=== PATIENT | female | born 1980 | race Caucasian/White ===

== ENCOUNTER → 2017-08-22 06:54 | Outpatient (CLI) | payer BC, SELFPAY ==
[2017-08-22 10:54] VITALS: BP 116/70; BMI 30.5
== END ==
PROVIDERS: Family Provider Family Medicine; PCP Family Medicine; Visit Provider Obstetrics & Gynecology
DX: R87.619 Unspecified abnormal cytological findings in specimens from cervix uteri (principal)

== ENCOUNTER → 2018-12-12 | Outpatient (CLI) | payer BC, SELFPAY ==
[2018-09-11 09:24] VITALS: BMI 30.5
== END | disposition home or self-care (01) ==
PROVIDERS: Family Provider Family Medicine; PCP Family Medicine; Visit Provider Family Medicine
DX: N10 Acute pyelonephritis (principal)
CPT/HCPCS: 87077; 87086; 87088; 87186

== ENCOUNTER → 2019-01-09 | Outpatient (CLI) | payer BC, SELFPAY ==
[2019-01-09 10:01] VITALS: BMI 30.5
[2019-01-09 12:29] LABS: HIV - WCH Non-Reactive (Nonreactive)
[2019-01-11 03:06] LABS: HCV Quant. RNA PCR HCV Not Detected IU/mL (.)
[2019-01-12 01:18] LABS: Rapid Plasmin Reagin (RPR) NONREACTIVE (NONREACTIVE)
[2019-01-12 12:31] LABS: HSV 2 IgG < 0.91 index (0.00-0.90)
[2019-01-24 13:46] LABS: HPV APTIMA, High Risk POSITIVE
[2019-01-24 14:09] LABS: HPV Genotype 16, Aptima Negative (Negative); HPV Genotype 18,45 Aptima Negative (Negative)
== END | disposition home or self-care (01) ==
PROVIDERS: Family Provider Family Medicine; PCP Family Medicine; Referring Provider Obstetrics & Gynecology; Visit Provider Obstetrics & Gynecology
DX: N89.8 Other specified noninflammatory disorders of vagina (principal); Z12.4 Encounter for screening for malignant neoplasm of cervix
CPT/HCPCS: 36415; 86592; 86695; 86696; 86703; 87070; 87205; 87522; 87624; 88175; G0145

== ENCOUNTER → 2019-03-07 | Outpatient (CLI) | payer BC, SELFPAY ==
--- NOTE | 2019-03-07 | CER_PTH ---
PATIENT: CHAPITO ROJAS LOC: [facility] U#:[id number] AGE/SX: 38/F ROOM: RE03/07/[address]: Dr. Carolina Stack MD : 1980 BED: DIS: 03/07/2019 SPEC #: [id number] RECD: 03/07/19 16:24 STATUS: PABLO MARY #: [id number] KEISHA: 03/07/19 00:[address]: Carolina Stack DEPT: SURGICAL PATHOLOGY RECD BY: Gerardo Wilson ENTERED: 03/08/19 07:41 SP TYPE: CERV OTHR DR: Dr. Erick Thornton MD Tissues: Uterine cervix, NOS Procedures: Surgery Specimen Level IV HEADER OPERATION: Colposcopy PRE-OP DIAGNOSIS: HPV positive TISSUE SUBMITTED: Colposcopy 11 o'clock MICROSCOPIC DIAGNOSIS Cervix, 11 o'clock, biopsy: A fragment of endocervical mucosa with moderate to marked chronic inflammation. Rare minute fragment of ectocervical epithelium, negative for dysplasia. ALE:keturah 03/09/19 COMMENT Clinical correlation and appropriate follow up are necessary. MICROSCOPIC DESCRIPTION Slides are reviewed. GROSS DESCRIPTION Received in fixative is one container labeled with the patient's name and designated 11 o'clock. The specimen consists of a minute fragment of morrow soft tissue measuring 0.1 cm in greatest dimension. The specimen is totally submitted in one cassette. / ALE:keturah 03/08/19 TC:3 CPT: 64222
[2019-03-07 08:48] VITALS: BMI 30.4
== END | disposition home or self-care (01) ==
LOC: LABSPEC 17:04
PROVIDERS: Family Provider Family Medicine; PCP Family Medicine; Referring Provider Obstetrics & Gynecology; Visit Provider Obstetrics & Gynecology
DX: N72 Inflammatory disease of cervix uteri (principal)
CPT/HCPCS: 88305

== ENCOUNTER 2020-04-30 06:27 | Emergency (ER) | payer BC, SELFPAY ==
[2019-03-07 08:48] VITALS: BMI 30.4
[2020-04-30 06:28] VITALS: BP 148/97; PULSE 98; RESP 16; TEMP 36.6; O2SAT 100; BMI 29.5
[2020-04-30 06:31] VITALS: O2SAT 100
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
[2020-04-30 07:52] VITALS: BP 126/67; PULSE 84; RESP 16; O2SAT 99
--- NOTE | 2020-04-30 07:52 | ED.RN ---
DISCHARGE INSTRUCTIONS GIVEN TO AND REVIEWED WITH PATIENT, PATIENT DENIES QUESTIONS OR CONCERNS AND VOICES UNDERSTANDING OF DISCHARGE INSTRUCTIONS. PT AMBULATES OUT OF ROOM WITHOUT DIFFICULTY.
== END 2020-04-30 07:53 | disposition home or self-care (01) ==
PROVIDERS: Emergency Provider Emergency Medicine; PCP Family Medicine
DX: S20.219A Contusion of unspecified front wall of thorax, initial encounter (principal); V89.2XXA Person injured in unspecified motor-vehicle accident, traffic, initial encounter; Z87.891 Personal history of nicotine dependence
CPT/HCPCS: 71101; 99283; 99285

== ENCOUNTER → 2020-08-21 10:23 | Outpatient (CLI) | payer BC, SELFPAY ==
[2020-08-21 09:41] VITALS: BMI 29.9
--- NOTE | 2020-08-21 10:24 | BI_ITS ---
MAMMOGRAPHY - BILATERAL SCREENING REASON FOR EXAM: Female, 40 years old. Routine annual screening examination. PERTINENT HISTORY: Non-contributory. TECHNIQUE: Digital bilateral breast dee (3D mammographic acquisition) in the CC and MLO projections. 2-D mediolateral oblique (MLO) and craniocaudad (CC) views of both breasts were obtained. CAD: Full Field Digital Mammography with Computer Added Detection was performed. COMPARISON: None. Baseline examination. FINDINGS: Breast Composition: The breasts are heterogeneously dense, which may obscure small masses. There are no dominant masses or suspicious calcifications. Accessory breast tissue is seen in the deep axillary region of the left breast. No other significant abnormalities are identified. BI/SCRN MAMM (CAD)W/DEE BILAT IMPRESSION: Stable bilateral screening mammogram. Yearly follow-up mammogram recommended. (A) ASSESSMENT CATEGORY: BIRADS Category 2: Benign. A letter regarding these results will be sent to the patient by the facility within 30 days. Approximately 10% of breast cancers are not detected by mammography. A normal mammogram should not delay biopsy of a clinically suspicious abnormality. [id number] Electronically Signed: Tom Frey MD at 11:25 EST , Service support ,
[2020-08-28 03:06] LABS: HPV Genotype 16, Aptima Negative (Negative)
[2020-08-28 09:36] LABS: HPV APTIMA, High Risk Positive (Negative); HPV Genotype 18,45 Aptima Negative (Negative)
== END ==
PROVIDERS: PCP Family Medicine; Referring Provider Obstetrics & Gynecology; Visit Provider Obstetrics & Gynecology
DX: Z12.31 Encounter for screening mammogram for malignant neoplasm of breast (principal); Z12.4 Encounter for screening for malignant neoplasm of cervix
CPT/HCPCS: 77063; 77067; 87624; 88175; G0145

== ENCOUNTER → 2020-09-10 08:19 | Outpatient (CLI) | payer BC, SELFPAY ==
[2020-08-21 09:41] VITALS: BMI 29.9
[2020-09-10 13:00] LABS: Anion Gap 7 (5-15); BUN 11 mg/dL (7-18); BUN/Creat Ratio 13.6 RATIO (10-20); Calcium,Total 8.7 mg/dL (8.5-10.1); Chloride 105 mmol/L (98-107); Cholesterol 225 mg/dL (200); Creatinine, Serum 0.81 mg/dL (0.55-1.02); EST Glomerular Filtration Rate 83 mL/min (>60); Est Glom Filt Rate - Afr Amer 101 mL/min (>60); Glucose 84 mg/dL (74-106); High Density Lipoprotein 67 mg/dL; Potassium 3.8 mmol/L (3.5-5.1); Sodium Level 138 mmol/L (136-145); Triglycerides 45 mg/dL; Very Low Density Lipoprotein 9 mg/dL (5-40)
== END ==
PROVIDERS: PCP Family Medicine; Visit Provider Family Medicine
DX: Q25.6 Stenosis of pulmonary artery (principal)
CPT/HCPCS: 36415; 80048; 80061

== ENCOUNTER → 2020-09-18 07:53 | Outpatient (CLI) | payer BC, SELFPAY ==
[2020-08-21 09:41] VITALS: BMI 29.9
--- NOTE | 2020-09-18 07:56 | ECHOD_ITS ---
Reason For Study: PULMONARY ARTERY STENOSIS Procedure This was a 2D Doppler, Color Flow transthoracic echocardiogram. The study was technically difficult. Exam performed in department. Left Ventricle Normal LV size. Left ventricular systolic function is normal. The estimated ejection fraction is 65 %. No regional wall motion abnormalities noted. Right Ventricle Normal RV size. Normal systolic function. Atria Normal left atrium. Normal right atrium. Mitral Valve Normal mitral valve. Tricuspid Valve Normal tricuspid valve. Aortic Valve Normal aortic valve. Trisinus/trileaflet aortic valve. Pulmonic Valve Normal pulmonic valve. Great Vessels Normal aortic root. The pulmonary artery is normal size. Normal inferior vena cava. Pericardium/Pleural No pericardial effusion. MMode/2D Measurements & Calculations LVIDd: 5.3 cm IVSd: 1.0 cm LAV(MOD-bp): 92.7 ml LVIDs: 3.7 cm LVPWd: 1.00 cm LAV(MOD-bp) Indexed: 45.1 ml/m2 RVDd: 3.0 cm FS: 30.6 % LAV(MOD-sp2): 106.5 ml LAV(MOD-sp4): 74.0 ml LA dimension(2D): 4.8 cm LA A4 area: 23.2 cm2 RA A4 area: 10.4 cm2 Time Measurements MV dec time: 0.21 sec Doppler Measurements & Calculations MV E max grupo: 103.7 cm/sec Lat Peak E' Grupo: 12.6 cm/sec Med Peak E' Grupo: 11.4 cm/sec MV A max grupo: 79.5 cm/sec E/E' lat: 8.3 E/E' med: 9.1 MV E/A: 1.3 Ao V2 max: 175.9 cm/sec LV V1 max: 145.3 cm/sec PA V2 max: 123.7 cm/sec Ao max P.4 mmHg LV V1 max P.4 mmHg PA V2 mean: 83.0 cm/sec PA V2 VTI: 24.1 cm Interpretation Summary Normal LV size. Left ventricular systolic function is normal. The estimated ejection fraction is 65 %. Structurally normal valves. Ordering Physician: Erick Thornton Referring Physician: Erick Thornton Performed By: Cherry Pike, FRANCHESKA, RVT
== END ==
PROVIDERS: PCP Family Medicine; Referring Provider Family Medicine; Visit Provider Family Medicine
DX: Q25.6 Stenosis of pulmonary artery (principal)
CPT/HCPCS: 93306

== ENCOUNTER → 2021-04-20 08:51 | Outpatient (CLI) | payer BC, SELFPAY ==
[2021-04-20 10:25] LABS: Vitamin D,25 Hydroxy 58.6 ng/mL
[2021-04-20 10:36] LABS: Anion Gap 6 (5-15); BUN 11 mg/dL (7-18); BUN/Creat Ratio 13.6 RATIO (10-20); Calcium,Total 8.8 mg/dL (8.5-10.1); Chloride 108 mmol/L (98-107); Cholesterol 205 mg/dL (200); Creatinine, Serum 0.81 mg/dL (0.55-1.02); EST Glomerular Filtration Rate 83 mL/min (>60); Est Glom Filt Rate - Afr Amer 101 mL/min (>60); Glucose 95 mg/dL (74-106); High Density Lipoprotein 71 mg/dL; Sodium Level 138 mmol/L (136-145); Thyroid Stim Hormone (TSH) 1.11 uIU/mL (0.358-3.74); Triglycerides 55 mg/dL; Very Low Density Lipoprotein 11 mg/dL (5-40)
== END ==
PROVIDERS: PCP Family Medicine; Referring Provider Family Medicine; Visit Provider Family Medicine
DX: Z00.00 Encounter for general adult medical examination without abnormal findings (principal)
CPT/HCPCS: 36415; 80048; 80061; 82306; 84443

== ENCOUNTER 2021-09-08 07:21 | Outpatient (CLI) | payer BC, SELFPAY ==
--- NOTE | 2021-09-08 07:24 | BI_ITS ---
MAMMOGRAPHY - BILATERAL SCREENING REASON FOR EXAM: Female, 41 years old. Routine annual screening examination. PERTINENT HISTORY: Non-contributory. TECHNIQUE: Digital bilateral breast dee (3D mammographic acquisition) in the CC and MLO projections. 2-D mediolateral oblique (MLO) and craniocaudad (CC) views of both breasts were obtained. CAD: Full Field Digital Mammography with Computer Added Detection was performed. COMPARISON: Comparison is made with prior study dated 08/21/2020. FINDINGS: Breast Composition: The breasts are heterogeneously dense, which may obscure small masses. There are no dominant masses or suspicious calcifications. Stable asymmetry of breast tissue were more breast tissue is seen in deep axillary region of the left breast as compared to the right side No other significant abnormalities are identified. There has been no significant change since the prior study. BI/SCRN MAMM (CAD)W/DEE BILAT IMPRESSION: Stable bilateral screening mammogram. Yearly follow-up mammogram recommended. (A) ASSESSMENT CATEGORY: BIRADS Category 2: Benign. A letter regarding these results will be sent to the patient by the facility within 30 days. Approximately 10% of breast cancers are not detected by mammography. A normal mammogram should not delay biopsy of a clinically suspicious abnormality. [id number] Electronically Signed: Tom Frey MD at 8:45 EST ,
[2021-09-15 22:07] LABS: HPV Genotype 16, Aptima Negative (Negative)
[2021-09-16 13:54] LABS: HPV APTIMA, High Risk Positive (Negative); HPV Genotype 18,45 Aptima Negative (Negative)
== END 2021-09-08 23:59 | disposition home or self-care (01) ==
PROVIDERS: PCP Family Medicine; Referring Provider Obstetrics & Gynecology; Visit Provider Obstetrics & Gynecology
DX: Z12.31 Encounter for screening mammogram for malignant neoplasm of breast (principal)
CPT/HCPCS: 77063; 77067; 87624; 88175; G0145

== ENCOUNTER 2021-10-23 13:46 | Outpatient (CLI) | payer BC, SELFPAY ==
--- NOTE | 2021-10-23 13:48 | RAD_ITS ---
STUDY: X-RAY - RIGHT SHOULDER REASON FOR EXAM: Female, 41 years old. SHOULDER PAIN TECHNIQUE: 4 view(s) of the shoulder. COMPARISON: None. FINDINGS: Normal glenohumeral joint space, but there is early degenerative inferior periarticular spurring of the glenoid of the scapula. Normal acromioclavicular joint. Normal acromion. Normal humeral head and visualized proximal humerus. The soft tissue structures are unremarkable. There is no demonstrated osseous destructive lesion or acute fracture. Subcentimeter calcified granuloma noted in the lateral right midlung. Patient has undergone prior median sternotomy and probable CABG. Small metal coils projecting over the right sternoclavicular region near the uppermost margin of the sternotomy wires may be related to prior embolization. RAD/Shoulder min 2 Views IMPRESSION: No acute osseous abnormality of the right shoulder. Electronically Signed: Sonido Farias MD at 10:32 EDT ,
== END 2021-10-23 23:59 | disposition home or self-care (01) ==
LOC: MTRAD 13:47
PROVIDERS: PCP Family Medicine; Referring Provider Family Medicine; Visit Provider Family Medicine
DX: M25.519 Pain in unspecified shoulder (principal)
CPT/HCPCS: 73030

== ENCOUNTER 2021-10-29 17:05 | Outpatient (CLI) | payer BC, SELFPAY ==
--- NOTE | 2021-10-29 | IMM_PTH ---
PATIENT: CHAPITO ROJAS LOC: [facility] U#:[id number] AGE/SX: 41/F ROOM: RE10/29/[address]: Dr. Carolina Stack MD : 1980 BED: DIS: 10/29/2021 SPEC #: [id number] RECD: 11/02/21 14:20 STATUS: PABLO REQ #: [id number] KEISHA: 10/29/21 00:[address]: Carolina Stack DEPT: IMMUNOHISTOCHEMISTRY RECD BY: Socorro Denny ENTERED: 11/02/21 14:22 SP TYPE: IMMUNO OTHR DR: Dr. Sid Warren MD Tissues: A - Uterine cervix, NOS Procedures: p16 (initial) KI-67 (add) PHYSICIAN & INSTITUTION [place] [id number] SPECIMEN INFORMATION: Tissue Source: A ? Cervix at 12 o?clock Clinical Info: HPV positive Specimen Number: [id number] CPT code: 48826, 65882 METHODOLOGY: Deparaffinized sections of prefer/formalin-fixed tissue or PAP/DQ stained slides are incubated with monoclonal/polyclonal antibodies/oligonucleotide probes. Localization is made via biotin free immunoperoxidase method. Appropriate controls are performed and reacted as expected. Results on target cell population are indicated in the following table: RESULTS: ANTIBODY / CLONE RESULT Block A P16 (E6H4) positive, focal, patchy Ki-67 (30-9) positive, low These tests were developed and their performance characteristics determined by [facility]. They may not have been cleared or approved by the U.S. Food and Drug Administration. The FDA has determined that such clearance or approval is not necessary. The above immunohistochemical/dualISH markers are ordered and reviewed by the Pathologist. INTERPRETATION: A. Uterine cervix at 12 o?clock, biopsy: Consistent with mild squamous dysplasia, PETROS I (LSIL). AM:keturah 11/04/2021
--- NOTE | 2021-10-29 15:30 | CER_PTH ---
PATIENT: CHAPITO ROJAS LOC: [facility] U#:[id number] AGE/SX: 41/F ROOM: RE10/29/[address]: Dr. Carolina Stack MD : 1980 BED: DIS: 10/29/2021 SPEC #: [id number] RECD: 10/29/21 16:57 STATUS: PABLO REBuffy #: [id number] KEISHA: 10/29/21 15:[address]: Carolina Stack DEPT: SURGICAL PATHOLOGY RECD BY: Venessa Garcia ENTERED: 10/30/21 07:22 SP TYPE: CERV OTHR DR: Dr. Sid Warren MD Tissues: A - Uterine cervix, NOS B - Endocervical Procedures: Surgery Specimen Level IV HEADER OPERATION: Colposcopy PRE-OP DIAGNOSIS: HPV positive TISSUE SUBMITTED: A ? Cervix 12 o?clock, B ? Endocervical curettings MICROSCOPIC DIAGNOSIS A. Cervix at 12 o?clock, biopsy: Focal HPV change/mild squamous dysplasia. Chronic inflammation. See comment. B. Endocervix, curettings: Strips of benign superficial endocervix. AM:keturah 11/02/2021 COMMENT A. Results from immunohistochemistry ([id number]) for surrogate HPV marker (p16) will be reported separately. Case has been reviewed in consultation with Dr. Obrien who concurs with the above diagnosis. IDC:SJ MICROSCOPIC DESCRIPTION Slides are reviewed. GROSS DESCRIPTION A - Received in fixative is one container labeled with the patient's name and designated 12 o?clock biopsy. The specimen consists of one irregular fragment of morrow soft tissue that measures 0.3 x 0.3 x 0.1 cm. Multiple fragments of morrow mucoid tissue are also present measuring 0.5 x 0.5 x 0.1 cm. The specimen is totally submitted in one cassette. B - Received in fixative is one container labeled with the patient's name and designated ECC. The specimen consists of multiple irregular fragments of morrow mucoid tissue that in aggregate measure 0.5 x 0.5 x 0.1 cm. The specimen is totally submitted in one cassette. / ALE:keturah 10/30/2021 TC:3 CPT: 05102 x2
== END 2021-10-29 23:59 | disposition home or self-care (01) ==
PROVIDERS: PCP Family Medicine; Referring Provider Obstetrics & Gynecology; Visit Provider Obstetrics & Gynecology
DX: R87.820 Cervical low risk human papillomavirus (HPV) DNA test positive (principal)
CPT/HCPCS: 88305; 88341; 88342

== ENCOUNTER 2022-01-05 16:30 | Outpatient (RCR) | payer BC, SELFPAY ==
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
--- NOTE | 2021-12-08 17:10 | HP.PTREVAL ---
Dr. Sid Warren MD, It has been my pleasure to treat CHAPITO ROJAS over the last 8 visits for R shoulder pain. Please see the progress note below for an update on the physical therapy plan of care! Subjective: My pain ranges from 0-4/10. Always worse in the morning Objective/Function: R shoulder pain ranges from 0-4/10. R shoulder ROM: flex= 105, abd= 80. R shoulder MMT: flex= 8, abd= 14, IR= 15, ER= 17#F. Pt still lacks functional strength and ROM at this time. Plan Plan: Pt to continue I at home with HEP for one month, then either return for PT or DC Balance/Gait/Functional tests - Balance/Special Test Scores Quick DASH Score: 36.3625 Goals Goal 1:: Decrease R shoulder pain x 50% to aid with sleep Goal Time Frame: 4-6 Weeks Goal Progress: Progressing Goal 2:: Increase R shoulder strength x 5-10 #F in all planes to aid with IADL's Goal Time Frame: 4-6 Weeks Goal Progress: Goal Met Goal 3:: Increase R shoulder flex and abd ROM x 30 degrees to aid with overhead activity Goal Time Frame: 4-6 Weeks Goal Progress: Goal Met Goal 4:: I with HEP Goal Time Frame: 4-6 Weeks Goal Progress: Goal Met Anticipated Interventions Patient/Client Instruction: Educate patient on: Condition, Plan of Care For the Purpose of:: To improve self management Therapeutic Exercise to Include: Strength training, Endurance training, Flexibilty training, Active ROM, Scapular Strength/Stabilization For the Purpose of:: To decrease pain, To increase ROM, To improve ability to perform ADL's Cryotherapy (ice pack, ice massage): Yes For the Purpose of:: To decrease pain Please do not hesitate to contact me at [phone] by phone or if you have questions or concerns regarding this new plan of care! Sincerely, Bernardo Castro, PT, ATC
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
== END 2022-01-05 19:00 | disposition home or self-care (01) ==
LOC: PT 16:30
PROVIDERS: PCP Family Medicine; Referring Provider Family Medicine; Visit Provider Family Medicine
DX: M25.511 Pain in right shoulder (principal)
CPT/HCPCS: 97110; 97161; 97164

== ENCOUNTER → 2022-01-30 | Outpatient (CLI) | payer BC, SELFPAY ==
--- NOTE | 2022-01-30 08:54 | MRI_ITS ---
STUDY: MRI RIGHT SHOULDER REASON FOR EXAM: Right shoulder pain, decreased range of motion, decreased fur puller strength, right shoulder injury 1 year ago. TECHNIQUE: Standardized fat and water weighted pulse sequences were obtained in all 3 orthogonal planes. COMPARISON: Radiographs 10/17/2021. FINDINGS: There is supraspinatus tendinosis and a small high-grade partial thickness tear of the articular surface of the distal anterior supraspinatus tendon at the greater tuberosity insertion (T2 coronal image 13) measuring 0.2 cm in length. There is infraspinatus tendinosis and a small intrasubstance partial thickness tear of the distal infraspinatus tendon (T2 coronal image 7) measuring 0.7 cm in length. There is mild subscapularis tendinosis (proton-density axial image 12) without discrete tendon tear. Normal teres minor tendon. Normal supraspinatus muscle. Normal infraspinatus muscle. Normal subscapularis muscle. Normal teres minor muscle. Normal glenohumeral articulation. Normal humeral head and visualized proximal humerus. There is a possible SLAP lesion (proton-density coronal images 10-12). Normal intracapsular long biceps tendon. Normal capsulo- ligamentous complex. Normal acromioclavicular articulation. There is a Type I morphology (flat undersurface), with a neutral orientation. There is no subacromial-subdeltoid bursal fluid. Normal visualized coracohumeral and coracoacromial ligaments. Normal deltoid muscle. Normal trapezius muscle. MRI/Upper Ext Joint Only(Routine) IMPRESSION: Small articular sided partial-thickness tear and tendinosis of the supraspinatus tendon. Small intrasubstance partial-thickness tear and tendinosis of the infraspinatus tendon. Mild subscapularis tendinosis. Possible SLAP lesion. Electronically Signed: Branden Diego MD at 10:06 EDT ,
== END | disposition home or self-care (01) ==
PROVIDERS: PCP Family Medicine; Referring Provider Family Medicine; Visit Provider Family Medicine
DX: M25.511 Pain in right shoulder (principal)
CPT/HCPCS: 73221

== ENCOUNTER → 2022-08-17 | Outpatient (CLI) | payer BC, SELFPAY ==
--- NOTE | 2022-08-17 08:03 | RAD_ITS ---
PROCEDURE: Fluoroscopic guided right shoulder Injection DATE: 08/17/2022. INDICATION: Female, 42 years old. Right shoulder capsulitis. PHYSICIAN: Tom Frey M.D. MEDICATIONS: 12 mg of BETAMETHASONE and 4 cc of 1% LIDOCAINE. 2% Lidocaine administered subcutaneously for local anesthesia. ACCESS SITE: Right shoulder. NEEDLE: 22-gauge spinal needle. FLUOROSCOPY TIME (if supplied): (0:46) minutes/seconds. A single image was submitted. FINDINGS: The risks, benefits, and alternatives to the procedure were explained to the patient. The specific risks of bleeding, infection, and neurovascular injury were detailed and accepted. Witnessed informed consent was obtained. A 22-gauge spinal needle was positioned under radiographic fluoroscopic localization. Approximately 2 cc of ISOVUE-300 instilled for localization purposes. Medication was then injected. The patient tolerated the procedure well without any immediate complications. RAD/Inj/Asp Jonathan Jt Should/Hip/Knee IMPRESSION: 1. Successful fluoroscopic guided right shoulder injection. Electronically Signed: Tom Frey MD at 9:04 EST ,
[2022-08-17] MEDS: Lidocaine 2% (5ml sdv) 5 ML VIAL.MPF INFILT (08:30)
[2022-08-17] MEDS: Betamethasone/Betamethasone 30 MG/5 ML Vial 12 MG OPERA.SITE (09:00)
== END | disposition home or self-care (01) ==
LOC: RAD 07:56
PROVIDERS: PCP Family Medicine; Referring Provider Specialist; Visit Provider Specialist
DX: M75.01 Adhesive capsulitis of right shoulder (principal)
CPT/HCPCS: 20610; 77002; Q9967; J0702

== ENCOUNTER 2022-08-23 14:14 | Emergency (ER) | payer BC, SELFPAY ==
[2022-08-23 14:15] VITALS: BP 155/76; PULSE 102; RESP 16; TEMP 36.8; O2SAT 100; BMI 30.7
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
--- NOTE | 2022-08-23 15:28 | CT_ITS ---
EXAM: CT ANGIOGRAPHY CHEST WITHOUT AND WITH INTRAVENOUS CONTRAST CLINICAL INDICATION: elevated d-dimer TECHNIQUE: Helically acquired angiography images were obtained of the chest without and with intravenous contrast. This CT exam was performed using one or more of the following dose reduction techniques: automated exposure control, adjustment of the mA and/or kV according to patient size, and/or use of iterative reconstruction technique. This report was created using Hobby report generation technology. MIP reconstructed images were created and reviewed. CONTRAST: IV 100mL Isovue-370 COMPARISON: None. FINDINGS: PULMONARY ARTERIES: Vascular graft from the left pulmonary artery to the superior vena cava. Decreased pulmonary opacification on the right appears to be due to calcified lymphadenopathy. No evidence of pulmonary embolism. AORTA: Unremarkable. Normal in caliber. No evidence of dissection. GREAT VESSELS OF AORTIC ARCH: Unremarkable. Normal in caliber. No evidence of dissection. LUNGS AND PLEURAL SPACES: Densely calcified pulmonary nodules, greater on the right, consistent with old granulomatous disease. Mild scarring in the right upper lobe. No pleural effusion or thickening. No pneumothorax. HEART: Unremarkable. Heart size is normal. No pericardial effusion. No signs of right heart strain, ratio of right ventricle to left ventricle measures less than 1. MEDIASTINUM: Esophagus is unremarkable. No hiatal hernia. THYROID: Unremarkable. No thyroid lesions. BONES/JOINTS: Unremarkable. No suspicious lytic or blastic abnormality. LYMPH NODES: Peripherally calcified pretracheal, precarinal and subcarinal lymphadenopathy measures up to 2.3 cm in short axis. Calcified hilar lymph nodes bilaterally. CT/CTA Chest W/WO Contrast IMPRESSION: 1. No evidence of PE. No acute findings. 2. Suboptimal pulmonary opacification in the right lung appears due to adenopathy. 3. Old granulomatous disease. Electronically Signed: Martha Pardo MD at 17:58 EST Reading Location ID and State: [id number] / Tel , Service support ,
--- NOTE | 2022-08-23 15:29 | EKG12_ITS ---
Test Reason : Blood Pressure : / mmHG Vent. Rate : 086 BPM Atrial Rate : 086 BPM P-R Int : 142 ms QRS Dur : 094 ms QT Int : 366 ms P-R-T Axes : 018 062 043 degrees QTc Int : 437 ms Normal sinus rhythm Normal ECG Confirmed by SHENG DALY, NIRMAL ([id number]), deputy editor in chief KEYON ROCKWELL ([id number]) on 08/24/2022 8:56:46 AM Referred By: Confirmed By:NIRMAL PATRICIO MD
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
[2022-08-23 17:00] VITALS: BP 125/76; PULSE 78; RESP 16; O2SAT 99
== END 2022-08-23 18:17 | disposition home or self-care (01) ==
PROVIDERS: Emergency Provider Student in an Organized Health Care Education/Training Program; PCP Family Medicine; Visit Provider Student in an Organized Health Care Education/Training Program
DX: R07.89 Other chest pain (principal); R79.89 Other specified abnormal findings of blood chemistry; Z87.891 Personal history of nicotine dependence
CPT/HCPCS: 71275; 93005; 99282; Q9967; A4216

== ENCOUNTER → 2022-08-23 | Outpatient (CLI) | payer BC, SELFPAY ==
[2022-08-23 12:16] LABS: Absolute Lymphocyte Count 2.97 X10^3/uL (0.83-4.51); Absolute Neutrophil Count 4.4 X10^3/uL (2.0-7.7); Basophil# 0.06 X10^3/uL; Basophil% 0.7 % (0-1); Eosinophil# 0.18 X10^3/uL; Eosinophils% 2.1 % (0-5); Hematocrit 39.9 % (37-47); Hemoglobin 13.1 g/dL (12.0-15.0); Lymphocyte # 2.97 X10^3/ul (0.83-4.51); Lymphocyte % 34.8 % (19-41); Mean Corp Hgb Conc 32.8 g/dL (32-36); Mean Corpuscular Hgb 31.3 pg (27.0-32.0); Mean Corpuscular Volume 95.5 fL (81-99); Mean Platelet Vol. 8.5 fl (6.2-12.0); Monocyte% 10.6 % (0-10); NRBC Flagged by Analyzer 0 % (0-5); Neutrophil # 4.36 X10^3/uL (2.7-7.7); Neutrophil % 51.1 % (47-70); Platelet Count 378 K/mm3 (150-450); RBC Distribution Width SD 41.8 fl (35.1-43.9); Red Blood Count 4.18 M/mm3 (4.2-5.4); White Blood Count 8.5 K/mm3 (4.4-11.0)
[2022-08-23 12:30] LABS: D-Dimer Quantitative (DVT/PE) 0.66 FEU/ug/m (0.27-0.49)
[2022-08-23 12:40] LABS: Anion Gap 8 (5-15); BUN 9 mg/dL (7-18); BUN/Creat Ratio 12.3 RATIO (10-20); Calcium,Total 8.6 mg/dL (8.5-10.1); Chloride 104 mmol/L (98-107); Creatinine, Serum 0.73 mg/dL (0.55-1.02); EST Glomerular Filtration Rate 92 mL/min (>60); Est Glom Filt Rate - Afr Amer 112 mL/min (>60); Glucose 89 mg/dL (74-106); Sodium Level 137 mmol/L (136-145); Troponin-I HS 5 pg/mL (3.0-54.0)
== END | disposition home or self-care (01) ==
LOC: MFPLAB 10:45
PROVIDERS: PCP Family Medicine; Referring Provider Family Medicine; Visit Provider Family Medicine
DX: R07.9 Chest pain, unspecified (principal)
CPT/HCPCS: 36415; 80048; 84484; 85025; 85379

== ENCOUNTER → 2022-09-10 | Outpatient (CLI) | payer BC, SELFPAY ==
--- NOTE | 2022-09-10 07:19 | BI_ITS ---
MAMMOGRAPHY - BILATERAL SCREENING REASON FOR EXAM: Female, 42 years old. Routine annual screening examination. PERTINENT HISTORY: Non-contributory. TECHNIQUE: Digital bilateral breast dee (3D mammographic acquisition) in the CC and MLO projections. 2-D mediolateral oblique (MLO) and craniocaudad (CC) views of both breasts were obtained. CAD: Full Field Digital Mammography with Computer Added Detection was performed. COMPARISON: Comparison is made with prior study dated 09/08/2021 and 08/21/2020. FINDINGS: Breast Composition: The breasts are heterogeneously dense, which may obscure small masses. There are no dominant masses or suspicious calcifications. Stable asymmetry of breast tissue were more breast tissue is seen in the deep axillary region of the left breast as compared to the right side No other significant abnormalities are identified. There has been no significant change since the prior study. BI/SCRN MAMM (CAD)W/DEE BILAT IMPRESSION: Stable bilateral screening mammogram. Yearly follow-up mammogram recommended. (A) ASSESSMENT CATEGORY: BIRADS Category 2: Benign. A letter regarding these results will be sent to the patient by the facility within 30 days. Approximately 10% of breast cancers are not detected by mammography. A normal mammogram should not delay biopsy of a clinically suspicious abnormality. [id number] Electronically Signed: Tom Frey MD at 9:48 EST ,
== END | disposition home or self-care (01) ==
LOC: OPBI 07:17
PROVIDERS: PCP Family Medicine; Referring Provider Obstetrics & Gynecology; Visit Provider Obstetrics & Gynecology
DX: Z12.31 Encounter for screening mammogram for malignant neoplasm of breast (principal)
CPT/HCPCS: 77063; 77067

== ENCOUNTER → 2022-09-13 | Outpatient (CLI) | payer BC, SELFPAY ==
[2022-09-21 15:12] LABS: HPV APTIMA, High Risk Negative (Negative)
== END | disposition home or self-care (01) ==
PROVIDERS: PCP Family Medicine; Visit Provider Obstetrics & Gynecology
DX: Z12.4 Encounter for screening for malignant neoplasm of cervix (principal)
CPT/HCPCS: 87624; 88175; G0145

== ENCOUNTER 2022-12-31 23:48 | Emergency (ER) | payer BC, SELFPAY ==
[2022-12-31 23:49] VITALS: BP 162/91; PULSE 107; RESP 18; TEMP 36.6; O2SAT 100; BMI 30.7
--- NOTE | 2022-12-31 23:59 | EKG12_ITS ---
Test Reason : PALPS Blood Pressure : / mmHG Vent. Rate : 099 BPM Atrial Rate : 099 BPM P-R Int : 142 ms QRS Dur : 088 ms QT Int : 352 ms P-R-T Axes : 058 067 056 degrees QTc Int : 451 ms Normal sinus rhythm Normal ECG Confirmed by RENZO DALY, MEILNDA ([id number]), newspaper photo editor KEYON ROCKWELL ([id number]) on 01/03/2023 10:57:41 A M Referred By: BLAIRE Confirmed By:HARESH MULLER MD
--- NOTE | 2023-01-01 00:01 | RAD_ITS ---
INDICATION: chest pain EXAMINATION/TECHNIQUE: X-RAY - portable upright AP chest x-ray COMPARISON: 04/30/2020 FINDINGS: LINES/DEVICES: None. LUNGS: No consolidation, edema or effusion. No pneumothorax. MEDIASTINUM AND CARDIOVASCULAR STRUCTURES: Cardiac silhouette not enlarged. Stable changes of CABG. BONES AND SOFT TISSUES: No acute changes. RAD/Chest 1 View (Portable) IMPRESSION: No radiographic evidence of acute cardiopulmonary disease. Electronically Signed: Stefano Champion MD at 0:42 EDT ,
[2023-01-01 00:30] LABS: Absolute Lymphocyte Count 3.92 X10^3/uL (0.83-4.51); Absolute Neutrophil Count 3.9 X10^3/uL (2.0-7.7); Basophil# 0.08 X10^3/uL; Basophil% 0.9 % (0-1); Eosinophils% 3.3 % (0-5); Hematocrit 37.3 % (37-47); Hemoglobin 12.6 g/dL (12.0-15.0); Lymphocyte # 3.92 X10^3/ul (0.83-4.51); Lymphocyte % 43.3 % (19-41); Mean Corp Hgb Conc 33.8 g/dL (32-36); Mean Corpuscular Hgb 31.1 pg (27.0-32.0); Mean Corpuscular Volume 92.1 fL (81-99); Mean Platelet Vol. 8.5 fl (6.2-12.0); Monocyte# 0.84 X10^3/uL; Monocyte% 9.3 % (0-10); NRBC Flagged by Analyzer 0 % (0-5); Neutrophil # 3.89 X10^3/uL (2.7-7.7); Neutrophil % 42.9 % (47-70); Platelet Count 338 K/mm3 (150-450); RBC Distribution Width CV 11.9 % (11.6-14.6); RBC Distribution Width SD 40.3 fl (35.1-43.9); Red Blood Count 4.05 M/mm3 (4.2-5.4); White Blood Count 9.1 K/mm3 (4.4-11.0)
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
[2023-01-01 00:47] LABS: D-Dimer Quantitative (DVT/PE) 0.48 FEU/ug/m (0.27-0.49)
[2023-01-01 00:54] LABS: Anion Gap 9 (5-15); BUN 14 mg/dL (7-18); BUN/Creat Ratio 16.7 RATIO (10-20); Calcium,Total 8.5 mg/dL (8.5-10.1); Chloride 108 mmol/L (98-107); Creatinine, Serum 0.84 mg/dL (0.55-1.02); EST Glomerular Filtration Rate 79 mL/min (>60); Est Glom Filt Rate - Afr Amer 96 mL/min (>60); Estimated Creatinine Clearance 91.18 ml/min; Glucose 88 mg/dL (74-106); Potassium 3.5 mmol/L (3.5-5.1); Sodium Level 141 mmol/L (136-145); Troponin-I HS (w/2H Reflex) 6 pg/mL (3.0-54.0)
[2023-01-01 01:01] VITALS: BP 105/63; PULSE 81; RESP 18; O2SAT 98
[2023-01-01 01:34] VITALS: BP 106/62; PULSE 78; RESP 17; O2SAT 100
[2023-01-01 02:29] LABS: Reflex Troponin-HS? (from REC) Y
== END 2023-01-01 01:36 | disposition home or self-care (01) ==
PROVIDERS: Emergency Provider Student in an Organized Health Care Education/Training Program; PCP Family Medicine; Visit Provider Student in an Organized Health Care Education/Training Program
DX: R00.2 Palpitations (principal); R42 Dizziness and giddiness; Z87.891 Personal history of nicotine dependence
CPT/HCPCS: 71045; 80048; 84484; 85025; 85379; 93005; 99284; A4216

== ENCOUNTER 2023-06-02 13:22 | Emergency (ER) | payer BC, SELFPAY ==
[2023-06-02 13:23] VITALS: BP 156/85; PULSE 122; RESP 18; TEMP 36.6; O2SAT 94; BMI 31.0
--- NOTE | 2023-06-02 13:26 | EKG12_ITS ---
Test Reason : CHEST PAIN Blood Pressure : / mmHG Vent. Rate : 116 BPM Atrial Rate : 116 BPM P-R Int : 148 ms QRS Dur : 088 ms QT Int : 316 ms P-R-T Axes : 073 083 065 degrees QTc Int : 439 ms Sinus tachycardia Otherwise normal ECG Confirmed by SHENG DALY, NIRMAL ([id number]), newspaper copy editor KEYON ROCKWELL ([id number]) on 06/08/2023 11:59:50 AM Referred By: Confirmed By:NIRMAL PATRICIO MD
[2023-06-02 13:40] VITALS: BP 153/81; PULSE 92
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
[2023-06-02] MEDS: 0.9% Normal Saline (1000mL) 1,000 ML 1000 ML IV (14:22)
[2023-06-02 14:29] LABS: Absolute Lymphocyte Count 2.82 X10^3/uL (0.83-4.51); Absolute Neutrophil Count 4.8 X10^3/uL (2.0-7.7); Basophil# 0.06 X10^3/uL; Basophil% 0.7 % (0-1); Eosinophil# 0.13 X10^3/uL; Eosinophils% 1.5 % (0-5); Hematocrit 39.6 % (37-47); Lymphocyte # 2.82 X10^3/ul (0.83-4.51); Lymphocyte % 33.2 % (19-41); Mean Corp Hgb Conc 32.8 g/dL (32-36); Mean Corpuscular Hgb 30.7 pg (27.0-32.0); Mean Corpuscular Volume 93.4 fL (81-99); Mean Platelet Vol. 8.3 fl (6.2-12.0); Monocyte# 0.67 X10^3/uL; Monocyte% 7.9 % (0-10); NRBC Flagged by Analyzer 0 % (0-5); Neutrophil # 4.78 X10^3/uL (2.7-7.7); Neutrophil % 56.3 % (47-70); Platelet Count 380 K/mm3 (150-450); RBC Distribution Width SD 40.9 fl (35.1-43.9); Red Blood Count 4.24 M/mm3 (4.2-5.4); White Blood Count 8.5 K/mm3 (4.4-11.0)
[2023-06-02 14:48] LABS: Internal QC Validated? YES +Cl - CLEAR BKGD; Pregnancy, Serum, hCG Quali. NEGATIVE Negative
[2023-06-02 14:51] LABS: Anion Gap 7 (5-15); BUN 7 mg/dL (7-18); BUN/Creat Ratio 7.7 RATIO (10-20); Calcium,Total 9.1 mg/dL (8.5-10.1); Chloride 105 mmol/L (98-107); Creatinine, Serum 0.91 mg/dL (0.55-1.02); EST Glomerular Filtration Rate 72 mL/min (>60); Est Glom Filt Rate - Afr Amer 87 mL/min (>60); Estimated Creatinine Clearance 83.31 ml/min; Glucose 106 mg/dL (74-106); Potassium 3.8 mmol/L (3.5-5.1); Sodium Level 138 mmol/L (136-145); Thyroid Stim Hormone (TSH) 2.32 uIU/mL (0.358-3.74); Troponin-I HS 6 pg/mL (3.0-54.0)
[2023-06-02 14:54] LABS: D-Dimer Quantitative (DVT/PE) 0.51 FEU/ug/m (0.27-0.49)
--- NOTE | 2023-06-02 15:32 | CT_ITS ---
STUDY: CTA CHEST REASON FOR EXAM: Female, 43 years old. dyspnea, elevated dimer RADIATION DOSAGE (If Supplied By Facility): CTDIvol = ( 11.39 ) mGy, DLP = ( 516.34 ) mGycm TECHNIQUE: The examination was performed with the intravenous administration of IV 100mL Isovue-370. Post-processing of the angiographic images was performed, with multiplanar reformation and 3D reconstruction. Individualized dose optimization techniques were used for this CT. COMPARISON: June 02, 2023. FINDINGS: Normal enhancement of the main pulmonary artery and right and left pulmonary arteries. Normal enhancement of the bilateral peripheral pulmonary arteries. There is no demonstrated pulmonary embolism. Normal thoracic aorta and visualized great vessels. There is no demonstrated aortic dissection. In general the heart size is normal although there does appear to be mild prominence of the right atrium. Calcified bilateral hilar and mediastinal nodes.. Vascular graft noted in the superior mediastinum Normal visualized trachea and bronchi. The lungs are well expanded. Calcified granulomata in right upper, lower and left lower lobes. Minor interstitial thickening in the left lower lobe and mild subsegmental atelectasis in the right lobe. Pleural-parenchymal scarring in the right apex. No pleural effusion or pneumothorax Postop change status post median sternotomy and CABG. Normal visualized upper abdomen. CT/CTA Chest W/WO Contrast IMPRESSION: Old granulomatous disease. Mild subsegmental atelectasis in the right lower lobe. No evidence for pulmonary embolus Electronically Signed: Eber Qiu MD at 17:01 EST ,
[2023-06-02 17:12] VITALS: BP 120/78; PULSE 88; RESP 18; O2SAT 99
== END 2023-06-02 17:13 | disposition home or self-care (01) ==
PROVIDERS: Emergency Provider Emergency Medicine; PCP Family Medicine; Visit Provider Emergency Medicine
DX: R00.2 Palpitations (principal); R00.0 Tachycardia, unspecified; Z87.891 Personal history of nicotine dependence
CPT/HCPCS: 71275; 80048; 84443; 84484; 84703; 85025; 85379; 93005; 96360; 99284; J7040; Q9967; A4216

== ENCOUNTER 2023-06-17 23:41 | Emergency (ER) | payer BC, SELFPAY ==
[2023-06-17 23:41] VITALS: BP 144/90; PULSE 96; RESP 17; TEMP 36.6; O2SAT 99; BMI 31.1
--- NOTE | 2023-06-18 00:20 | EKG12_ITS ---
Test Reason : PALPITATIONS Blood Pressure : / mmHG Vent. Rate : 077 BPM Atrial Rate : 077 BPM P-R Int : 138 ms QRS Dur : 098 ms QT Int : 382 ms P-R-T Axes : 041 060 046 degrees QTc Int : 432 ms Normal sinus rhythm Normal ECG Confirmed by HSENG DALY, NIRMAL ([id number]), content editor CHARISSA VALDEZ ([id number]) on 06/20/2023 10:43:53 AM Referred By: SONYA Confirmed By:NIRMAL PATRICIO MD
[2023-06-18 00:37] LABS: Absolute Lymphocyte Count 2.01 X10^3/uL (0.83-4.51); Basophil# 0.09 X10^3/uL; Basophil% 1.1 % (0-1); Eosinophil# 0.35 X10^3/uL; Eosinophils% 4.2 % (0-5); Hematocrit 34.5 % (37-47); Hemoglobin 11.6 g/dL (12.0-15.0); Lymphocyte # 2.01 X10^3/ul (0.83-4.51); Lymphocyte % 24.4 % (19-41); Mean Corp Hgb Conc 33.6 g/dL (32-36); Mean Corpuscular Hgb 31.4 pg (27.0-32.0); Mean Corpuscular Volume 93.2 fL (81-99); Mean Platelet Vol. 8.5 fl (6.2-12.0); Monocyte# 0.78 X10^3/uL; Monocyte% 9.5 % (0-10); NRBC Flagged by Analyzer 0 % (0-5); Neutrophil % 60.6 % (47-70); Platelet Count 299 K/mm3 (150-450); RBC Distribution Width CV 12.2 % (11.6-14.6); RBC Distribution Width SD 41.9 fl (35.1-43.9); White Blood Count 8.3 K/mm3 (4.4-11.0)
[2023-06-18 00:43] VITALS: RESP 16
[2023-06-18 00:54] LABS: Anion Gap 5 (5-15); BUN 13 mg/dL (7-18); Calcium,Total 8.4 mg/dL (8.5-10.1); Chloride 108 mmol/L (98-107); Creatinine, Serum 0.77 mg/dL (0.55-1.02); EST Glomerular Filtration Rate 87 mL/min (>60); Est Glom Filt Rate - Afr Amer 106 mL/min (>60); Estimated Creatinine Clearance 98.45 ml/min; Glucose 127 mg/dL (74-106); Potassium 3.8 mmol/L (3.5-5.1); Sodium Level 138 mmol/L (136-145); Troponin-I HS (w/2H Reflex) 6 pg/mL (3.0-54.0)
[2023-06-18 01:43] VITALS: RESP 16
[2023-06-18 02:00] VITALS: RESP 16
[2023-06-18 02:34] LABS: Reflex Troponin-HS? (from REC) Y
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
[2023-06-18 03:00] VITALS: BP 112/77
== END 2023-06-18 03:03 | disposition home or self-care (01) ==
PROVIDERS: Emergency Provider Emergency Medicine; PCP Family Medicine; Visit Provider Emergency Medicine
DX: R00.2 Palpitations (principal); Z87.891 Personal history of nicotine dependence
CPT/HCPCS: 80048; 84484; 85025; 93005; 99284; A4216

== ENCOUNTER 2023-06-29 05:33 | Emergency (ER) | payer BC, SELFPAY ==
[2023-06-29 05:34] VITALS: BP 146/92; PULSE 95; RESP 18; TEMP 36.6; O2SAT 100; BMI 30.4
--- NOTE | 2023-06-29 05:42 | EKG12_ITS ---
Test Reason : PALPITATIONS Blood Pressure : / mmHG Vent. Rate : 081 BPM Atrial Rate : 081 BPM P-R Int : 152 ms QRS Dur : 098 ms QT Int : 384 ms P-R-T Axes : 022 055 048 degrees QTc Int : 446 ms Normal sinus rhythm Normal ECG Confirmed by RENZO DALY, MELINDA ([id number]), editor map KEYON ROCKWELL ([id number]) on 07/04/2023 1:42:32 P M Referred By: SONYA Confirmed By:HARESH MULLER MD
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
[2023-06-29 06:43] VITALS: BP 111/60; PULSE 67; RESP 20; O2SAT 96
== END 2023-06-29 06:44 | disposition home or self-care (01) ==
PROVIDERS: Emergency Provider Emergency Medicine; PCP Family Medicine; Visit Provider Emergency Medicine
DX: R00.2 Palpitations (principal); Z79.82 Long term (current) use of aspirin; Z79.899 Other long term (current) drug therapy; Z87.891 Personal history of nicotine dependence
CPT/HCPCS: 93005; 99283

== ENCOUNTER 2023-07-27 01:06 | Emergency (ER) | payer BC, SELFPAY ==
[2023-07-27] VITALS (15 sets, daily range): BP systolic 97–147; BP diastolic 56–83; PULSE 72–84; RESP 15–24; TEMP 36.8; O2SAT 94–99; BMI 30.3
--- NOTE | 2023-07-27 01:21 | EKG12_ITS ---
Test Reason : DYSRHYTHMIA Blood Pressure : / mmHG Vent. Rate : 079 BPM Atrial Rate : 079 BPM P-R Int : 136 ms QRS Dur : 094 ms QT Int : 402 ms P-R-T Axes : 054 060 050 degrees QTc Int : 460 ms Normal sinus rhythm Nonspecific ST abnormality Abnormal ECG Confirmed by SHENG DALY, NIRMAL ([id number]), image editor CHARISSA VALDEZ ([id number]) on 07/27/2023 9:16:30 AM Referred By: Confirmed By:NIRMAL PATRICIO MD
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
[2023-07-27] MEDS: Mag Hydrox/Al Hydrox/Simeth 30 ML UDC PO (01:31)
[2023-07-27] MEDS: Ondansetron 4 MG/2 ML Vial IV (01:32)
--- NOTE | 2023-07-27 01:40 | RAD_ITS ---
STUDY: X-RAY CHEST REASON FOR EXAM: Female, 43 years old. Cough sob cp TECHNIQUE: Single AP portable view of the chest. COMPARISON: January 01, 2023 chest x-ray FINDINGS: There is volume loss in the right chest. There is a pattern of interstitial thickening within the right lung. There is no demonstrated pleural abnormality. There are sternotomy wires midline and several embolization coils. There are calcified mediastinal lymph nodes. Normal visualized pulmonary arteries. Normal visualized aortic arch and descending thoracic aorta. Normal visualized thoracic spine. Normal visualized ribs, clavicles, and shoulders. There is no demonstrated abnormality of the visualized soft tissue structures of the upper abdomen. RAD/Chest PA and Lateral IMPRESSION: Chronic, Volume loss right chest. Postoperative change status post sternotomy. Relatively stable appearing underlying chronic changes without visualized acute focal infiltrate. Electronically Signed: Kierra Jarvis MD at 2:24 EST Reading Location ID and State: [facility] / [place] Tel , Service support ,
[2023-07-27 01:44] LABS: Absolute Neutrophil Count 5.9 X10^3/uL (2.0-7.7); Basophil# 0.06 X10^3/uL; Basophil% 0.7 % (0-1); Eosinophil# 0.16 X10^3/uL; Eosinophils% 1.7 % (0-5); Hematocrit 36.4 % (37-47); Hemoglobin 12.4 g/dL (12.0-15.0); Lymphocyte % 26.1 % (19-41); Mean Corp Hgb Conc 34.1 g/dL (32-36); Mean Corpuscular Hgb 31.4 pg (27.0-32.0); Mean Corpuscular Volume 92.2 fL (81-99); Mean Platelet Vol. 8.3 fl (6.2-12.0); Monocyte% 7.6 % (0-10); NRBC Flagged by Analyzer 0 % (0-5); Neutrophil # 5.85 X10^3/uL (2.7-7.7); Neutrophil % 63.7 % (47-70); Platelet Count 348 K/mm3 (150-450); RBC Distribution Width CV 12.1 % (11.6-14.6); RBC Distribution Width SD 40.5 fl (35.1-43.9); Red Blood Count 3.95 M/mm3 (4.2-5.4); White Blood Count 9.2 K/mm3 (4.4-11.0)
[2023-07-27 02:12] LABS: Anion Gap 7 (5-15); BUN 6 mg/dL (7-18); BUN/Creat Ratio 7.8 RATIO (10-20); Calcium,Total 9.3 mg/dL (8.5-10.1); Chloride 109 mmol/L (98-107); Creatinine, Serum 0.77 mg/dL (0.55-1.02); EST Glomerular Filtration Rate 87 mL/min (>60); Est Glom Filt Rate - Afr Amer 105 mL/min (>60); Estimated Creatinine Clearance 110.91 ml/min; Glucose 110 mg/dL (74-106); Lipase 27 U/L (13-75); Potassium 3.3 mmol/L (3.5-5.1); Sodium Level 139 mmol/L (136-145); Troponin-I HS 6 pg/mL (3.0-54.0)
--- OUTSIDE RECORDS SUMMARY | 2023-07-27 02:24 | XMS RPT_ITS | CCD ---
Author Name Unknown Address [address] [place] [address] Organization [facility] Care Team Providers Care Lead Business Systems Analyst Name Role Phone MARIA ESTHER BENITO Unavailable Unavailable MARIA ESTHER BENITO Unavailable Unavailable Allergies Allergy Classification Reported Allergen(s) Allergy Type Date of Onset Reaction(s) Facility (1 source) Seasonal allergy; Translations: [SEASONAL ALLERGIES] Propensity to adverse reactions (disorder) 2 AOF [facility] Repository Problems Problem Classification Problem Date Documented Da te Episodic/Chronic Unclassified (1 source) Unknown / UNK(Unknown) Onset: 12-22-2016 Encounters Encounter Date Encounter Type Care Provider Facility Start: 12-22-2016 End: 12-24-2016 Ambulatory MARIA ESTHER BENITO [facility] Summary Purpose Family History No Family History Records Found Advance Directives No Advanced Directives Records Found Additional Source Comments INFORMATION SOURCE (unrecogn ized section and content) FOR RECORDS PERTAINING TO PATIENTS WHO ARE OR HAVE BEEN ENROLLED IN A CHEMICAL DEPENDENCY/SUBSTANCEABUSE PROGRAM, SOME INFORMATION MAY BE OMITTED. This clinical summary was aggregated from multiple sources. Caution should be exercised in using it in the provision of clinical care. This summary normalizes information from multiple sources, and as a consequence, information in this document may materially change the coding, format and clinical context of patient data. In addition, data may be omitted in some cases. CLINICAL DECISIONS SHOULD BE BASED ON THE PRIMARY CLINICAL RECORDS. [employer] provides no warranty or guarantee of the accuracy or completeness of information in this document.
== END 2023-07-27 02:54 | disposition home or self-care (01) ==
PROVIDERS: Emergency Provider Emergency Medicine; PCP Family Medicine; Visit Provider Emergency Medicine
DX: R07.9 Chest pain, unspecified (principal); K21.9 Gastro-esophageal reflux disease without esophagitis; J06.9 Acute upper respiratory infection, unspecified; Z87.891 Personal history of nicotine dependence
CPT/HCPCS: 71046; 80048; 83690; 84484; 85025; 93005; 96374; 99284; A4216; J2405

== ENCOUNTER → 2023-07-30 | Outpatient (CLI) | payer BC, SELFPAY ==
--- OUTSIDE RECORDS SUMMARY | 2023-07-29 17:26 | XMS RPT_ITS | CCD ---
Author Name Unknown Address [address] [place] [address] Organization [facility] Care Team Providers Care Grainer Machine Name Role Phone MARIA ESTHER BENITO Unavailable Unavailable MARIA ESTHER BENITO Unavailable Unavailable Allergies Allergy Classification Reported Allergen(s) Allergy Type Date of Onset Reaction(s) Facility (1 source) Seasonal allergy; Translations: [SEASONAL ALLERGIES] Propensity to adverse reactions (disorder) 2 AOF [facility] Repository Problems Problem Classification Problem Date Documented Da te Episodic/Chronic Unclassified (1 source) Unknown / UNK(Unknown) Onset: 12-22-2016 Encounters Encounter Date Encounter Type Care Provider Facility Start: 12-22-2016 End: 12-24-2016 Ambulatory MARIA ESTHER BENITO [facility] Summary Purpose Family History No Family [...] BE BASED ON THE PRIMARY CLINICAL RECORDS. [employer] provides no warranty or guarantee of the accuracy or completeness of information in this document.
--- OUTSIDE RECORDS SUMMARY | 2023-07-30 13:17 | XMS RPT_ITS | CCD ---
Author Name Unknown Address [address] [place] [address] Organization [facility] Care Team Providers Care Certified Orthotic Fitter Name Role Phone MARIA ESTHER BENITO Unavailable Unavailable MARIA ESTHER BENITO Unavailable Unavailable Allergies Allergy Classification Reported Allergen(s) Allergy Type Date of Onset Reaction(s) Facility (1 source) Seasonal allergy; Translations: [SEASONAL ALLERGIES] Propensity to adverse reactions (disorder) 2 AOF [facility] Repository Problems Problem Classification Problem Date Documented Da te Episodic/Chronic Unclassified (1 source) Unknown / UNK(Unknown) Onset: 12-22-2016 Encounters Encounter Date Encounter Type Care Provider Facility Start: 12-22-2016 End: 12-24-2016 Ambulatory MARIA ESTHER BENITO [facility] Summary Purpose Family History No Family [...] BE BASED ON THE PRIMARY CLINICAL RECORDS. [employer] provides no warranty or guarantee of the accuracy or completeness of information in this document.
== END | disposition home or self-care (01) ==
LOC: LABSPEC 13:14
PROVIDERS: PCP Family Medicine; Visit Provider Family Medicine
DX: R19.7 Diarrhea, unspecified (principal)
CPT/HCPCS: 87493; 87506

== ENCOUNTER → 2023-08-03 | Outpatient (CLI) | payer BC, SELFPAY ==
--- NOTE | 2023-08-03 06:51 | CT_ITS ---
EXAM: CT ABDOMEN AND PELVIS WITH INTRAVENOUS CONTRAST CLINICAL INDICATION: ABD PAIN TECHNIQUE: Helically acquired images were obtained of the abdomen and pelvis with intravenous contrast. This CT exam was performed using one or more of the following dose reduction techniques: automated exposure control, adjustment of the mA and/or kV according to patient size, and/or use of iterative reconstruction technique. CONTRAST: 100mL Isovue 370 and amp; Readi-CAT RADIATION DOSE: CTDIvol = 17.03 mGy, DLP = 947.32 mGy-cm COMPARISON: No prior abdomen and pelvis CT, prior CTA report from June 02, 2023 mentioned old granulomatous disease. FINDINGS: LOWER THORAX: Multiple scattered calcified granulomas in the lung bases. The heart is not fully included. Suspected scarring in the anterior right lung base. No convincing basilar infiltrates. No significant pericardial effusion. ABDOMEN: LIVER: At least 4 tiny scattered calcified granulomas in the liver. There is a typical appearance of focal fat in the left lobe of the liver adjacent to the falciform ligament. Additional evaluation is not required. GALLBLADDER AND BILE DUCTS: Unremarkable. No calcified gallstones. No gallbladder distention or wall edema. No intra- or extrahepatic biliary ductal dilation. PANCREAS: Unremarkable. No focal cystic or solid mass. SPLEEN: Multiple tiny calcified granulomas in the spleen, normal size. ADRENALS: Unremarkable. No nodules. KIDNEYS AND URETERS: Unremarkable. Normal renal size and position. No hydronephrosis. STOMACH AND BOWEL: There is minimal gas in the stomach, mild gas and contrast in the duodenum. Oral contrast reached the rectum, no obstruction. There is incomplete distention some of the distal colon, especially at the junction of the distal descending and proximal sigmoid colon. This is a limited exam for screening for neoplasm but no mass is identified. Low lying cecum. No focal inflammatory change. PELVIS: APPENDIX: Nonvisualized appendix. No pericecal inflammatory changes. BLADDER: The urinary bladder is almost collapsed and mildly thick-walled, wall thickening likely due to nondistention. REPRODUCTIVE: . There is mildly thick-walled apparent dominant follicle in the left ovary with mild peripheral enhancement, 1.9 cm x 1.5 cm x 2.4 cm. The uterus is mildly retroflexed with mildly prominent cervix. Uterus at least 9.5 cm x 6.4 cm x 7.6 cm, mildly prominent. Endometrial stripe not well seen. Also mildly prominent presumed follicle in the right ovary, elongated, 1.5 cm x 1.2 cm x 1 cm. ABDOMEN and PELVIS: INTRAPERITONEAL SPACE: Slight fluid deep in the right and posterior pelvis. No free air. BONES/JOINTS: Mild disc space narrowing and vacuum disc at L5-S1 with minimal spondylosis. No lumbar spinal stenosis. There are postoperative changes, presumed scar in the suprapubic region trace fat deep in the umbilicus. No suspicious lytic or blastic abnormality. SOFT TISSUES: See above. VASCULATURE: Unremarkable. Abdominal aorta is non-dilated. LYMPH NODES: Unremarkable. No enlarged lymph nodes. CT/Abdomen/Pelvis WITH Contrast IMPRESSION: 1. At least 1 presumed mildly prominent follicle in each ovary. Mildly prominent uterus and cervix. Correlate with recent pelvic exam and Pap smear. 2. Slight intrapelvic fluid. 3. No bowel obstruction. Nonvisualized appendix. 4. Limited distention of some of the distal colon, especially at the short segment of apparent collapse or focal narrowing at distal descending-sigmoid junction. This is a limited exam for colon screening. Recommendation: Consider endoscopy for further evaluation and screening. Electronically Signed: Gayle Clements MD at 9:05 EST ,
--- OUTSIDE RECORDS SUMMARY | 2023-08-03 06:56 | XMS RPT_ITS | CCD ---
Author Name Unknown Address [email or web address] [place] [address] Organization [facility] Care Team Providers Care Media Specialist Name Role Phone MARIA ESTHER BENITO Unavailable Unavailable MARIA ESTHER BENITO Unavailable Unavailable Allergies Allergy Classification Reported Allergen(s) Allergy Type Date of Onset Reaction(s) Facility (1 source) Seasonal allergy; Translations: [SEASONAL ALLERGIES] Propensity to adverse reactions (disorder) 2 AOF [facility] Repository Problems Problem Classification Problem Date Documented Da te Episodic/Chronic Unclassified (1 source) Unknown / UNK(Unknown) Onset: 12-22-2016 Encounters Encounter Date Encounter Type Care Provider Facility Start: 12-22-2016 End: 12-24-2016 Ambulatory MARIA ESTHER BENITO [facility] Summary Purpose Family History No Family [...] BE BASED ON THE PRIMARY CLINICAL RECORDS. [employer] provides no warranty or guarantee of the accuracy or completeness of information in this document.
== END | disposition home or self-care (01) ==
LOC: CT 06:48
PROVIDERS: PCP Family Medicine; Referring Provider Family Medicine; Visit Provider Family Medicine
DX: R10.9 Unspecified abdominal pain (principal)
CPT/HCPCS: 74177; Q9967

== ENCOUNTER 2023-08-10 01:13 | Emergency (ER) | payer BC, SELFPAY ==
[2023-08-10 01:14] VITALS: BP 143/96; PULSE 92; RESP 20; TEMP 36.1; O2SAT 100; BMI 29.0
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
--- NOTE | 2023-08-10 01:30 | RAD_ITS ---
INDICATION: Palpitations EXAMINATION/TECHNIQUE: X-RAY - XR Chest 2 Views COMPARISON: 07/27/2023. FINDINGS: LINES/DEVICES: None. LUNGS: No consolidation or evidence of an effusion. No evidence of edema or a pneumothorax. Stable calcified granulomas bilaterally. MEDIASTINUM AND CARDIOVASCULAR STRUCTURES: Cardiac silhouette is normal in size and contour. Stable postsurgical changes. Calcified mediastinal and hilar lymph nodes. BONES AND SOFT TISSUES: No acute abnormality. RAD/Chest PA and Lateral IMPRESSION: No evidence of acute cardiopulmonary disease. Electronically Signed: Eber Knapp DO at 2:10 EST ,
[2023-08-10 01:40] LABS: Absolute Lymphocyte Count 3.22 X10^3/uL (0.83-4.51); Absolute Neutrophil Count 3.9 X10^3/uL (2.0-7.7); Basophil# 0.05 X10^3/uL; Basophil% 0.6 % (0-1); Eosinophil# 0.16 X10^3/uL; Hematocrit 37.6 % (37-47); Hemoglobin 12.5 g/dL (12.0-15.0); Lymphocyte # 3.22 X10^3/ul (0.83-4.51); Lymphocyte % 39.9 % (19-41); Mean Corp Hgb Conc 33.2 g/dL (32-36); Mean Corpuscular Hgb 30.6 pg (27.0-32.0); Mean Corpuscular Volume 92.2 fL (81-99); Mean Platelet Vol. 8.4 fl (6.2-12.0); Monocyte# 0.72 X10^3/uL; Monocyte% 8.9 % (0-10); NRBC Flagged by Analyzer 0 % (0-5); Neutrophil % 48.4 % (47-70); Platelet Count 287 K/mm3 (150-450); RBC Distribution Width CV 12.1 % (11.6-14.6); RBC Distribution Width SD 41.2 fl (35.1-43.9); Red Blood Count 4.08 M/mm3 (4.2-5.4); White Blood Count 8.1 K/mm3 (4.4-11.0)
--- OUTSIDE RECORDS SUMMARY | 2023-08-10 01:57 | XMS RPT_ITS | CCD ---
Author Name Unknown Address [address] [place] [address] Organization [facility] Care Team Providers Care Board Filler Name Role Phone MARIA ESTHER BENITO Unavailable Unavailable MARIA ESTHER BENITO Unavailable Unavailable Allergies Allergy Classification Reported Allergen(s) Allergy Type Date of Onset Reaction(s) Facility (1 source) Seasonal allergy; Translations: [SEASONAL ALLERGIES] Propensity to adverse reactions (disorder) 2 AOF [facility] Repository Problems Problem Classification Problem Date Documented Da te Episodic/Chronic Unclassified (1 source) Unknown / UNK(Unknown) Onset: 12-22-2016 Encounters Encounter Date Encounter Type Care Provider Facility Start: 12-22-2016 End: 12-24-2016 Ambulatory MARIA ESTHER BENITO [facility] Summary Purpose Family History No Family [...] BE BASED ON THE PRIMARY CLINICAL RECORDS. [employer] provides no warranty or guarantee of the accuracy or completeness of information in this document.
[2023-08-10 02:00] LABS: Anion Gap 5 (5-15); BUN 6 mg/dL (7-18); BUN/Creat Ratio 7.2 RATIO (10-20); Calcium,Total 9.1 mg/dL (8.5-10.1); Chloride 108 mmol/L (98-107); Creatinine, Serum 0.84 mg/dL (0.55-1.02); EST Glomerular Filtration Rate 79 mL/min (>60); Est Glom Filt Rate - Afr Amer 95 mL/min (>60); Glucose 117 mg/dL (74-106); Potassium 3.5 mmol/L (3.5-5.1); Sodium Level 136 mmol/L (136-145); Troponin-I HS (w/2H Reflex) 7 pg/mL (3.0-54.0)
[2023-08-10 03:38] LABS: Reflex Troponin-HS? (from REC) Y
[2023-08-10 04:11] LABS: Troponin-I HS 9 pg/mL (3.0-54.0)
[2023-08-10 04:24] VITALS: BP 107/64; PULSE 68; PULSE 71; RESP 22; O2SAT 99
== END 2023-08-10 04:30 | disposition home or self-care (01) ==
PROVIDERS: Emergency Provider Emergency Medicine; PCP Family Medicine; Visit Provider Emergency Medicine
DX: R00.2 Palpitations (principal); R03.0 Elevated blood-pressure reading, without diagnosis of hypertension; Z87.891 Personal history of nicotine dependence
CPT/HCPCS: 71046; 80048; 84484; 85025; 93005; 99284; A4216

== ENCOUNTER → 2023-08-15 | Outpatient (CLI) | payer BC, SELFPAY ==
--- OUTSIDE RECORDS SUMMARY | 2023-08-15 14:05 | XMS RPT_ITS | CCD ---
Author Name Unknown Address [address] [place] [address] Organization [facility] Care Team Providers Care Livestock Ranch Hand Name Role Phone MARIA ESTHER BENITO Unavailable Unavailable MARIA ESTHER BENITO Unavailable Unavailable Allergies Allergy Classification Reported Allergen(s) Allergy Type Date of Onset Reaction(s) Facility (1 source) Seasonal allergy; Translations: [SEASONAL ALLERGIES] Propensity to adverse reactions (disorder) 2 AOF [facility] Repository Problems Problem Classification Problem Date Documented Da te Episodic/Chronic Unclassified (1 source) Unknown / UNK(Unknown) Onset: 12-22-2016 Encounters Encounter Date Encounter Type Care Provider Facility Start: 12-22-2016 End: 12-24-2016 Ambulatory MARIA ESTHER BENITO [facility] Summary Purpose Family History No Family [...] BE BASED ON THE PRIMARY CLINICAL RECORDS. [employer] provides no warranty or guarantee of the accuracy or completeness of information in this document.
[2023-08-18 17:07] LABS: HPV APTIMA, High Risk Negative (Negative)
== END | disposition home or self-care (01) ==
LOC: LABSPEC 13:28
PROVIDERS: PCP Family Medicine; Referring Provider Obstetrics & Gynecology; Visit Provider Obstetrics & Gynecology
DX: Z12.4 Encounter for screening for malignant neoplasm of cervix (principal)
CPT/HCPCS: 87624; 88175; G0145

== ENCOUNTER → 2023-08-23 | Outpatient (CLI) | payer BC, SELFPAY ==
--- NOTE | 2023-08-23 10:58 | ECHOD_ITS ---
Reason For Study: PALPITATIONS Procedure This was a 2D Doppler, Color Flow transthoracic echocardiogram. The study was technically difficult. Exam performed in department. Left Ventricle Normal size and thickness. The left ventricular ejection fraction is 60 %. Right Ventricle Normal right ventricle. Atria The left and right atria are normal. Mitral Valve Trivial mitral valve insufficiency. Tricuspid Valve Trivial tricuspid valve insufficiency. Normal pulmonary artery pressure. Aortic Valve The aortic valve is not well visualized in the short axis view. There is no aortic stenosis. No aortic valve insufficiency. Pulmonic Valve The pulmonic valve is not well visualized. Great Vessels Normal sized aortic root. Pericardium/Pleural No pericardial effusion. MMode/2D Measurements & Calculations LVIDd: 5.5 cm IVSd: 1.0 cm Ao root diam: 3.0 cm LVIDs: 3.6 cm LVPWd: 1.0 cm RVDd: 3.4 cm FS: 34.0 % LAV(MOD-bp): 47.6 ml LVAd ap4: 39.0 cm2 SV(MOD-sp4): 95.1 ml LAV(MOD-bp) Indexed: 23.8 ml/m2 LVLd ap4: 8.7 cm LAV(MOD-sp2): 51.1 ml EDV(MOD-sp4): 144.3 ml LAV(MOD-sp4): 38.5 ml EDV(sp4-el): 147.5 ml LVAs ap4: 20.4 cm2 LVLs ap4: 6.9 cm ESV(MOD-sp4): 49.2 ml ESV(sp4-el): 50.7 ml EF(MOD-sp4): 65.9 % EF(sp4-el): 65.6 % SV(sp4-el): 96.8 ml LA A4 area: 15.6 cm2 LA dimension(2D): 3.6 cm RA A4 area: 11.5 cm2 TAPSE: 1.7 cm Time Measurements MV dec time: 0.25 sec Doppler Measurements & Calculations MV E max grupo: 133.6 cm/sec Lat Peak E' Grupo: 13.0 cm/sec Med Peak E' Grupo: 11.3 cm/sec MV A max grupo: 65.4 cm/sec E/E' lat: 10.3 E/E' med: 11.8 MV E/A: 2.0 Ao V2 max: 180.4 cm/sec LV V1 max: 149.0 cm/sec PA V2 max: 78.3 cm/sec Ao max P.0 mmHg LV V1 max P.9 mmHg TR max grupo: 222.5 cm/sec TR max P.8 mmHg ECHO/Echo Complete Interpretation Summary The left ventricular ejection fraction is 60 %. Nonspecific color Doppler turbulence noted in the aortic arch. Recommend CT sca n for further evaluation. Ordering Physician: Josué Tovar Referring Physician: FREDDY RENEE Performed By: Jyoti Pacheco RDCS
--- OUTSIDE RECORDS SUMMARY | 2023-08-23 13:28 | XMS RPT_ITS | CCD ---
Author Name Unknown Address [address] [place] [address] Organization [facility] Care Team Providers Care Test Technician Name Role Phone MARIA ESTHER BENITO Unavailable Unavailable MARIA ESTHER BENITO Unavailable Unavailable Allergies Allergy Classification Reported Allergen(s) Allergy Type Date of Onset Reaction(s) Facility (1 source) Seasonal allergy; Translations: [SEASONAL ALLERGIES] Propensity to adverse reactions (disorder) 2 AOF [facility] Repository Problems Problem Classification Problem Date Documented Da te Episodic/Chronic Unclassified (1 source) Unknown / UNK(Unknown) Onset: 12-22-2016 Encounters Encounter Date Encounter Type Care Provider Facility Start: 12-22-2016 End: 12-24-2016 Ambulatory MARIA ESTHER BENITO [facility] Summary Purpose Family History No Family [...] BE BASED ON THE PRIMARY CLINICAL RECORDS. [employer] provides no warranty or guarantee of the accuracy or completeness of information in this document.
== END | disposition home or self-care (01) ==
LOC: CVS 10:57
PROVIDERS: PCP Family Medicine; Referring Provider Internal Medicine Cardiovascular Disease; Visit Provider Internal Medicine Cardiovascular Disease
DX: R00.2 Palpitations (principal); I49.9 Cardiac arrhythmia, unspecified; R03.0 Elevated blood-pressure reading, without diagnosis of hypertension
CPT/HCPCS: 93306

== ENCOUNTER → 2023-09-02 | Outpatient (CLI) | payer BC, SELFPAY ==
--- NOTE | 2023-09-02 07:25 | CT_ITS ---
STUDY: CTA CHEST REASON FOR EXAM: Female, 43 years old. Turbulence noted in Aortic Arch RADIATION DOSAGE (If Supplied By Facility): CTDIvol = ( 15.26 ) mGy, DLP = ( 439.22 ) mGycm TECHNIQUE: The examination was performed with the intravenous administration of IV 100mL Isovue-370. Post-processing of the angiographic images was performed, with multiplanar reformation and 3D reconstruction. Individualized dose optimization techniques were used for this CT. 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 Multiple smaller collaterals are noted in the right hemithorax.There is no demonstrated pulmonary embolism. Normal thoracic aorta and visualized great vessels. There is no demonstrated aortic dissection. Normal heart and pericardium. Normal mediastinum. Normal hilar regions. Normal visualized trachea and bronchi. The lungs are well expanded. Normal pulmonary parenchyma. Normal pleura. Normal chest wall structures. Normal osseous structures. Normal visualized upper abdomen. 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 Multiple smaller collaterals are noted in the right hemithorax. No demonstrated pulmonary embolism or arterial dissection. Electronically Signed: Mali Steel MD at 8:11 EST ,
--- OUTSIDE RECORDS SUMMARY | 2023-09-02 07:42 | XMS RPT_ITS | CCD ---
Author Name Unknown Address [address] [place] [address] Organization [facility] Care Team Providers Care Shot Core Drill Operator Helper Name Role Phone MARIA ESTHER BENITO Unavailable Unavailable MARIA ESTHER BENITO Unavailable Unavailable Allergies Allergy Classification Reported Allergen(s) Allergy Type Date of Onset Reaction(s) Facility (1 source) Seasonal allergy; Translations: [SEASONAL ALLERGIES] Propensity to adverse reactions (disorder) 2 AOF [facility] Repository Problems Problem Classification Problem Date Documented Da te Episodic/Chronic Unclassified (1 source) Unknown / UNK(Unknown) Onset: 12-22-2016 Encounters Encounter Date Encounter Type Care Provider Facility Start: 12-22-2016 End: 12-24-2016 Ambulatory MARIA ESTHER BENITO [facility] Summary Purpose Family History No Family History [...] BE BASED ON THE PRIMARY CLINICAL RECORDS. [employer] provides no warranty or guarantee of the accuracy or completeness of information in this document.
== END | disposition home or self-care (01) ==
LOC: CT 07:24
PROVIDERS: PCP Family Medicine; Referring Provider Nurse Practitioner Gerontology; Visit Provider Nurse Practitioner Gerontology
DX: Z86.79 Personal history of other diseases of the circulatory system (principal); I47.29 Other ventricular tachycardia; I47.10 Supraventricular tachycardia, unspecified; R03.0 Elevated blood-pressure reading, without diagnosis of hypertension; R00.2 Palpitations; R93.1 Abnormal findings on diagnostic imaging of heart and coronary circulation
CPT/HCPCS: 71275; Q9967

== ENCOUNTER → 2023-09-12 | Outpatient (CLI) | payer BC, SELFPAY ==
[2023-09-12 18:08] LABS: CRP < 2.90 mg/L (0.0-3.0)
[2023-09-14 16:10] LABS: Endomysial Antibody IgA Negative (Negative); Immunoglobulin A 195 mg/dL (87-352); t-Transglutaminase IgA <2 U/mL (0-3)
== END | disposition home or self-care (01) ==
PROVIDERS: PCP Family Medicine; Referring Provider Internal Medicine Gastroenterology; Visit Provider Internal Medicine Gastroenterology
DX: R19.7 Diarrhea, unspecified (principal)
CPT/HCPCS: 36415; 82784; 83516; 86140; 86255

== ENCOUNTER → 2023-09-16 | Outpatient (CLI) | payer BC, SELFPAY ==
--- NOTE | 2023-09-16 13:49 | STE_ITS ---
Reason For Study: CHEST PAIN, TACHYCARDIA Stress Results Protocol: Dandre Protocol Maximum Predicted HR: 177 bpm Target HR: 150 bpm % Maximum Predicted HR: 92 % DurationHeart Rate Stage (mm:ss) (bpm) BP Comment BASELINE 63 110/62 STAGE 1 3:00 103 112/62NO CHEST PAIN STAGE 2 3:00 122 120/78 STAGE 3 3:00 148 130/88SOB NOTED STAGE 4 1:00 162 / RECOVERY 93 108/78 Stress Duration: 10:00 mm:ss Maximum Stress HR: 162 bpm Baseline Echocardiogram Findings Stress Echo Wall motion Data Resting WM Intermediate WM Stress WM Resting Wall Motion Wall Motion Stress No regional wall motion All segments Hyperkinetic. abnormalities noted. EKG Data The baseline ECG displays normal sinus rhythm. Stress EKG without any ischemic changes. ECHO/Stress Test Echo w/o Contrast Interpretation Summary Patient exercised on the treadmill according to the Dandre protocol for total of 10 minutes. No ischemic ECG changes with exercise. Rare PVC noted. Normal augmentation of all left ventricular wall segments with exercise. No ech o evidence of ischemia. Ordering Physician: Josué Tovar Referring Physician: Josué Tovar Performed By: Ralph Matta [facility]
== END | disposition home or self-care (01) ==
PROVIDERS: PCP Family Medicine; Referring Provider Internal Medicine Cardiovascular Disease; Visit Provider Internal Medicine Cardiovascular Disease
DX: R03.0 Elevated blood-pressure reading, without diagnosis of hypertension (principal); R00.2 Palpitations; I49.9 Cardiac arrhythmia, unspecified
CPT/HCPCS: 93017; 93350

== ENCOUNTER → 2023-09-20 | Outpatient (CLI) | payer BC, SELFPAY ==
--- NOTE | 2023-09-20 07:26 | BI_ITS ---
MAMMOGRAPHY - BILATERAL SCREENING 3-D TOMOSYNTHESIS REASON FOR EXAM: Female, 43 years old. screening mammogram PERTINENT HISTORY: No significant family history. TECHNIQUE: 2-D mammograms and 3-D Tomosynthesis of the breast (s) were performed. CAD was performed. COMPARISON: 09/10/2022 FINDINGS: The breast composition is composed of scattered fibroglandular density. Scattered benign calcifications are seen. No dense spiculated masses or suspicious microcalcifications are identified. No architectural distortion is identified. There is no skin thickening or retraction. There has been no significant change since the prior study. BI/SCRN MAMM (CAD)W/DEE BILAT IMPRESSION: No mammographic signs of malignancy. Routine yearly mammograms recommended. ASSESSMENT CATEGORY: BIRADS Category 1: Negative. A letter regarding these results will be sent to the patient by the facility within 30 days. FOLLOW UP RECOMMENDATION: Yearly follow up mammogram recommended. (A) Approximately 10% of breast cancers are not detected by mammography. A normal mammogram should not delay biopsy of a clinically suspicious abnormality. Electronically Signed: Marcus Wilhelm MD at 17:53 EST ,
--- OUTSIDE RECORDS SUMMARY | 2023-09-20 07:46 | XMS RPT_ITS | CCD ---
Author Name Unknown Address [address] [place] [address] Organization [facility] Care Team Providers Care Mold Polisher Name Role Phone MARIA ESTHER BENITO Unavailable Unavailable MARIA ESTHER BENITO Unavailable Unavailable Allergies Allergy Classification Reported Allergen(s) Allergy Type Date of Onset Reaction(s) Facility (1 source) Seasonal allergy; Translations: [SEASONAL ALLERGIES] Propensity to adverse reactions (disorder) 2 AOF [facility] Repository Problems Problem Classification Problem Date Documented Da te Episodic/Chronic Unclassified (1 source) Unknown / UNK(Unknown) Onset: 12-22-2016 Encounters Encounter Date Encounter Type Care Provider Facility Start: 12-22-2016 End: 12-24-2016 Ambulatory MARIA ESTHER BENITO [facility] Summary Purpose Family History No [...] BE BASED ON THE PRIMARY CLINICAL RECORDS. [employer] provides no warranty or guarantee of the accuracy or completeness of information in this document.
== END | disposition home or self-care (01) ==
LOC: OPBI 07:26
PROVIDERS: PCP Family Medicine; Referring Provider Obstetrics & Gynecology; Visit Provider Obstetrics & Gynecology
DX: Z12.31 Encounter for screening mammogram for malignant neoplasm of breast (principal)
CPT/HCPCS: 77063; 77067

== ENCOUNTER → 2023-10-05 | Outpatient (CLI) | payer BC, SELFPAY ==
--- NOTE | 2023-10-05 08:52 | CDU_ITS ---
Reason For Study: Carotid bruit Rt. Velocities/BP Lt. Velocities/BP Prox CCA 147.7/16 cm/sec. Prox CCA 164.9/13.3 cm/sec. Mid CCA 110.1/11.5 cm/sec. Mid CCA 121.1/15.2 cm/sec. Dist CCA 93.7/17 cm/sec. Dist CCA 95.5/15.2 cm/sec. Prox ICA 71.6/23.7 cm/sec. Prox ICA 91.9/18.8 cm/sec. Mid ICA 107.2/36 cm/sec. Mid ICA 83.9/22.5 cm/sec. Dist ICA 108/28.9 cm/sec. Dist ICA 58.1/17.6 cm/sec. Rt. ICA/CCA = 0.98. Lt. ICA/CCA = 0.76. Prox ECA 109.7/7.7 cm/sec. Prox ECA 106.5/9.7 cm/sec. Rt. Vert. 50.9/4.6 cm/sec. Lt. Vert. 94.9/24.9 cm/sec. Right Extracranial There is intimal thickening but no significant atherosclerotic plaque noted in the right common carotid artery. There is intimal thickening but no significant atherosclerotic plaque noted in the right internal carotid artery. There is intimal thickening but no significant atherosclerotic plaque noted in the right external carotid artery. Antegrade flow is noted in the right vertebral artery. Left Extracranial There is intimal thickening but no significant atherosclerotic plaque noted in the left common carotid artery. There is intimal thickening but no significant atherosclerotic plaque noted in the left internal carotid artery. There is intimal thickening but no significant atherosclerotic plaque noted in the left external carotid artery. Antegrade flow is noted in the left vertebral artery. Procedure Carotid Duplex [id number]. This is a Carotid Duplex examination using B-mode, color flow and specral Doppler. Exam performed in department. VL/Carotid Duplex Ultrasound Interpretation Summary Normal right extracranial internal carotid. Normal left extracranial internal carotid. Patent and antegrade vertebrals bilaterally. Ordering Physician: Josué Tovar Referring Physician: Sid Warren Performed By: Mellissa Washington RVT
== END | disposition home or self-care (01) ==
PROVIDERS: PCP Family Medicine; Referring Provider Internal Medicine Cardiovascular Disease; Visit Provider Internal Medicine Cardiovascular Disease
DX: R09.89 Other specified symptoms and signs involving the circulatory and respiratory systems (principal); I47.29 Other ventricular tachycardia; I47.10 Supraventricular tachycardia, unspecified; Z86.79 Personal history of other diseases of the circulatory system
CPT/HCPCS: 93880

== ENCOUNTER 2023-10-09 00:57 | Emergency (ER) | payer BC, SELFPAY ==
[2023-10-09 00:57] VITALS: BP 154/88; PULSE 91; RESP 12; TEMP 36.9; O2SAT 100; BMI 30.1
--- NOTE | 2023-10-09 01:15 | EKG12_ITS ---
Test Reason : CHEST TIGHTNESS Blood Pressure : / mmHG Vent. Rate : 083 BPM Atrial Rate : 083 BPM P-R Int : 152 ms QRS Dur : 090 ms QT Int : 374 ms P-R-T Axes : 042 058 053 degrees QTc Int : 439 ms Normal sinus rhythm Normal ECG Confirmed by Porfirio Sharma ([id number]), associate entertainment editor CHARISSA VALDEZ ([id number]) on 10/11/2023 9:05:38 AM Referred By: JEFFERY Confirmed By:Porfirio Sharma
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
--- NOTE | 2023-10-09 01:20 | RAD_ITS ---
INDICATION: cp EXAMINATION/TECHNIQUE: X-RAY - XR Chest 1 View COMPARISON: 08/10/2023 FINDINGS: LINES/DEVICES: None. LUNGS: The lungs are well expanded. No consolidation, edema or effusion. No pneumothorax. Right hemidiaphragmatic eventration redemonstrated. MEDIASTINUM AND CARDIOVASCULAR STRUCTURES: Cardiac silhouette not enlarged. Central airways and mediastinal contour are unremarkable. Stable postsurgical changes. BONES AND SOFT TISSUES: No acute osseous abnormalities. RAD/Chest 1 View (Portable) IMPRESSION: No acute pulmonary finding. Electronically Signed: Israel Joseph MD at 2:11 EDT ,
[2023-10-09 01:35] LABS: Absolute Lymphocyte Count 3.31 X10^3/uL (0.83-4.51); Absolute Neutrophil Count 4.7 X10^3/uL (2.0-7.7); Basophil# 0.07 X10^3/uL; Basophil% 0.8 % (0-1); Eosinophil# 0.21 X10^3/uL; Eosinophils% 2.3 % (0-5); Hematocrit 36.7 % (37-47); Lymphocyte # 3.31 X10^3/ul (0.83-4.51); Lymphocyte % 36.2 % (19-41); Mean Corp Hgb Conc 32.7 g/dL (32-36); Mean Corpuscular Hgb 30.8 pg (27.0-32.0); Mean Corpuscular Volume 94.1 fL (81-99); Mean Platelet Vol. 8.3 fl (6.2-12.0); Monocyte# 0.82 X10^3/uL; NRBC Flagged by Analyzer 0 % (0-5); Neutrophil # 4.71 X10^3/uL (2.7-7.7); Neutrophil % 51.4 % (47-70); Platelet Count 359 K/mm3 (150-450); RBC Distribution Width CV 12.2 % (11.6-14.6); RBC Distribution Width SD 41.8 fl (35.1-43.9); White Blood Count 9.2 K/mm3 (4.4-11.0)
[2023-10-09 02:09] LABS: Anion Gap 8 (5-15); BUN 9 mg/dL (7-18); BUN/Creat Ratio 11.9 RATIO (10-20); Calcium,Total 9.1 mg/dL (8.5-10.1); Chloride 105 mmol/L (98-107); Creatinine, Serum 0.75 mg/dL (0.55-1.02); EST Glomerular Filtration Rate 89 mL/min (>60); Est Glom Filt Rate - Afr Amer 108 mL/min (>60); Estimated Creatinine Clearance 113.45 ml/min; Glucose 102 mg/dL (74-106); Potassium 3.4 mmol/L (3.5-5.1); Sodium Level 139 mmol/L (136-145); Thyroid Stim Hormone (TSH) 2.09 uIU/mL (0.358-3.74); Troponin-I HS (w/2H Reflex) 7 pg/mL (3.0-54.0)
[2023-10-09 02:21] VITALS: BP 117/67; PULSE 69; RESP 16; O2SAT 99
[2023-10-09] MEDS: Potassium Chloride Oral Tablet 20 MEQ 40 MEQ PO (02:33)
[2023-10-09 02:36] VITALS: BP 117/67; PULSE 69; RESP 16; TEMP 36.4; O2SAT 99
[2023-10-09 03:29] LABS: Reflex Troponin-HS? (from REC) Y
== END 2023-10-09 02:40 | disposition home or self-care (01) ==
PROVIDERS: Emergency Provider Emergency Medicine; PCP Family Medicine; Visit Provider Emergency Medicine
DX: R00.2 Palpitations (principal); I10 Essential (primary) hypertension; Z87.891 Personal history of nicotine dependence
CPT/HCPCS: 71045; 80048; 84443; 84484; 85025; 93005; 99285; A4216